=== PATIENT | female | born 1995 | race Caucasian/White ===

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

== ENCOUNTER 2018-10-12 17:05 | Emergency (ER) | payer OTHER ==
[~2018-10-12] VITALS: Ht 160 cm; Wt 54.9 kg
[~2018-10-12 17:05] MED LIST changes: +NORCO 5-325 TA1 EACH PO; +ZITHROMAX250 MG PO
--- OUTSIDE RECORDS SUMMARY | 2018-10-12 17:08 | XMS ---
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 ELin VISIT COUNT (12 MO.) 1 [facility] TOTAL 1 NOTE: Visits indicate total known visits. ED/UCC VISIT TRACKING (12 MO.) 10/12/2018 17:06 [facility] [place] TYPE: Emergency COMPLAINT: - LEFT LEG LACERATION INPATIENT VISIT TRACKING (12 MO.) No inpatient visits to display in this time frame [email or web address]
== END 2018-10-12 18:26 | disposition home or self-care (01) ==
LOC: ED 17:05
PROC: 0HQLXZZ Repair Left Lower Leg Skin, External Approach (ICD-10-PCS; principal; 2018-10-12)
DX: S81.812A Laceration without foreign body, left lower leg, initial encounter (principal); Z90.49 Acquired absence of other specified parts of digestive tract; Z88.8 Allergy status to other drugs, medicaments and biological substances; Z79.899 Other long term (current) drug therapy; W25.XXXA Contact with sharp glass, initial encounter
CPT/HCPCS: 12001; 99282-25

== ENCOUNTER 2024-01-09 11:50 | Emergency (ER) | payer OTHER ==
[~2024-01-09] VITALS: Ht 160 cm; Wt 66.9 kg
[~2024-01-09 11:50] MED LIST changes: +ONDANSETRON ODT8 MG PO; +SETLAKIN 0.151 EACH PO; +VENLAFAXINE HC150 MG PO
[2024-01-09] MEDS ORDERED: SODIUM CHLORIDE 0.9% 500 ML IV ONE (14:00)
[2024-01-09] MEDS ORDERED: ondansetron HCL 4 MG/2 ML VIAL IV ONE (14:00)
[2024-01-09 14:12] LABS: BILIRUBIN, URINE POSITIVE (negative); BLOOD/HGB, URINE NEGATIVE (Negative); KETONE, URINE SMALL (Negative); LEUK ESTERASE, URINE NEGATIVE (negative); NITRITE, URINE NEGATIVE (negative)
[2024-01-09] MEDS ORDERED: TRAZODONE HCL50 MG PO (14:16)
[2024-01-09 14:42] LABS: BASOPHILS 0.3 % (0-2); HEMATOCRIT 40.2 % (35.0-50.0); HEMOGLOBIN 13.7 g/dL (12.0-18.0); LYMPHOCYTES 41.9 % (24-44); MCH 30.6 (27-36); MCHC 34.2 g/dl (30-36); MCV 89.6 fl (81-99); MONOCYTES 10.8 % (0-12); PLATELET COUNT 239 K/uL (140-440); RBC 4.48 M/ul (4.3-5.7); RDW 12.7 (10.5-15.0)
[2024-01-09 15:01] LABS: ALBUMIN 3.7 g/dL (3.4-5.0); ALBUMIN/GLOBULIN RATIO 1.09 (1.1-2.4); ANION GAP 9.5 (7-21); BILIRUBIN, TOTAL 0.3 ng/dL (0.2-1.0); BUN/CREATININE RATIO 9.37 (6.0-28.6); CREATININE, SERUM 0.96 mg/dL (0.55-1.02); MAGNESIUM 2.1 mg/dL (1.8-2.4); POTASSIUM 3.5 mmol/L (3.5-5.1); PROTEIN, TOTAL 7.1 g/dL (6.4-8.2)
[2024-01-09] MEDS ORDERED: PANTOPRAZOLE SODIUM 40 MG/10 ML VIAL IV ONE (15:30)
[2024-01-09] MEDS ORDERED: SODIUM CHLORIDE 0.9% 1,000 ML IV ONE (15:30)
[2024-01-09] MEDS ORDERED: PROMETHAZINE HCL 25 MG TAB PO ONE (15:30)
[2024-01-09] MEDS ORDERED: PROMETHAZINE HC25 M1 PO (16:18)
[2024-01-09 16:35] VITALS: BP 121/98
== END 2024-01-09 16:35 | disposition home or self-care (01) ==
LOC: ED 11:50
PROVIDERS: Emergency Medicine
DX: R11.2 Nausea with vomiting, unspecified (principal); Z79.899 Other long term (current) drug therapy; Z88.1 Allergy status to other antibiotic agents; Z88.8 Allergy status to other drugs, medicaments and biological substances
CPT/HCPCS: 36415; 80053; 81003; 83735; 84703; 85025; 96361; 96374; 96375; 99284-25; J2405; J2470; J7030; J7040

== ENCOUNTER 2024-12-17 14:02 | Emergency (ER) | payer OTHER ==
[~2024-12-17] VITALS: Ht 160 cm; Wt 69.9 kg
[~2024-12-17 14:02] MED LIST changes: +DULOXETINE HCL60 MG PO; +PROMETHAZINE HC25 M1 PO; +PROPRANOLOL HCL10 MG PO; +TRAZODONE HCL50 MG PO
--- OUTSIDE RECORDS SUMMARY | 2024-12-17 14:08 | XMS ---
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 E.Miguel Angel VISIT COUNT (12 MO.) [address] Mackenzie Joy (Shanti Moser) TOTAL 4 NOTE: Visits indicate total known visits. ED/UCC VISIT TRACKING (12 MO.) 12/17/2024 14:03 [facility] TYPE: Emergency COMPLAINT: - CHEST PAIN 12/08/2024 20:52 [facility] [place] TYPE: Emergency COMPLAINT: - HEART RATE ISSUES/CHEST TIGHTNESS DIAGNOSES: - Allergy status to other antibiotic agents - Other chest pain - Other terminal gauger (current) drug therapy - Tachycardia, unspecified [facility] DIAGNOSES: - Conjunctival edema, right eye - Conjunctival hemorrhage, right eye - Eye Redness - rt eye issue 01/09/2024 11:[address] [facility] TYPE: Emergency COMPLAINT: - VOMITING DIAGNOSES: - Allergy status to other antibiotic agents - Allergy status to other drugs, medicaments and biological substances - Nausea with vomiting, unspecified - Other terminal gauger (current) drug therapy INPATIENT VISIT TRACKING (12 MO.) No inpatient visits to display in this time frame [email or web address]
[2024-12-17 14:43] LABS: BASOPHILS 0.2 % (0.1-1.2); EOSINOPHILS 1.3 % (0.7-5.8); LYMPHOCYTES 44.0 % (19.3-51.7); MCH 30.3 PG (25.6-32.2); MCHC 34.6 g/dL (32.2-35.5); MCV 87.6 fL (79.4-94.8); MONOCYTES 10.9 % (4.7-12.5); NEUTROPHILS 43.4 % (34.0-71.1); RBC 4.36 M/uL (3.93-5.22)
[2024-12-17 15:08] LABS: ALT (SGPT) 45 U/L (14-59); AST (SGOT) 21 U/L (15-37); GLOMERULAR FILTRATION RATE,EST 83 mL/min (>60); PROTEIN, TOTAL 7.0 g/dL (6.4-8.2); UREA NITROGEN 13 mg/dL (7-18)
[2024-12-17 15:47] VITALS: BP 120/110
--- NOTE | 2024-12-18 23:04 | EKG ---
[facility] [address] [facility] [facility] [place] [address] Signed Normal sinus rhythm Normal ECG When compared with ECG of 08-DEC-2024 20:59, No significant change was found Confirmed by Indiana Weiss MD () on 12/18/2024 11:04:27 PM Electronically Signed By: [place] WEISS MD 12/18/24 2304 PATIENT NAME: MAGALIE LIN YONG Electrocardiogram DATE OF : [birth year] PHYSICIAN: [place] WEISS MD REPORT #: [id number] REPORT IS CONFIDENTIAL AND NOT TO BE RELEASED WITHOUT AUTHORIZATION
== END 2024-12-17 15:50 | disposition home or self-care (01) ==
LOC: ED 14:02
PROVIDERS: Emergency Medicine
DX: R07.9 Chest pain, unspecified (principal); Z79.899 Other long term (current) drug therapy; Z88.1 Allergy status to other antibiotic agents; F12.90 Cannabis use, unspecified, uncomplicated
CPT/HCPCS: 36415; 71045; 80053; 83880; 84484; 84703; 85025; 85379; 93005; 93010; 99285-25